=== PATIENT | female | born 1990 | race Caucasian/White ===

== ENCOUNTER 2023-05-30 12:16 | Outpatient (CLI) | payer MEDICAID | END 2023-05-30 23:59 | disposition home or self-care (01) | LOC: RAD 12:16 | PROVIDERS: ATTEND Family Medicine | DX: M25.512 Pain in left shoulder (principal) | CPT/HCPCS: 73030 ==

== ENCOUNTER 2023-10-04 07:28 | Outpatient (CLI) | payer MEDICAID | END 2023-10-04 23:59 | disposition home or self-care (01) | LOC: MRI 07:28 | PROVIDERS: ATTEND Family Medicine | DX: M75.02 Adhesive capsulitis of left shoulder (principal); M89.312 Hypertrophy of bone, left shoulder; M25.512 Pain in left shoulder | CPT/HCPCS: 73221 ==